=== PATIENT | male | born 1990 | race Caucasian/White ===

== ENCOUNTER 2019-06-30 05:55 | Day surgery (SDC) | payer BC ==
[~2019-06-30] VITALS: Ht 180.3 cm; Wt 86.7 kg
[2019-06-30 06:27] VITALS: BP 135/89
[2019-06-30] MEDS ORDERED: NO HOME MEDS (06:40)
[2019-06-30] MEDS ORDERED: BUPIVACAINE/PF 0.5% ONE ×2 (06:50→09:02)
[2019-06-30] MEDS ORDERED: EPINEPHRINE 1 MG/ML, 1ML ONE (06:50)
[2019-06-30] MEDS ORDERED: LIDOCAINE/PF 1%-EPI 1:200K, 30 ML ONE (06:50)
[2019-06-30] MEDS ORDERED: LACTATED RINGERS 1,000 ML IV SCH (07:04)
[2019-06-30] MEDS ORDERED: FENTANYL PF 250 MCG/5ML ONE (07:54)
[2019-06-30] MEDS ORDERED: MIDAZOLAM 1 MG/ML, 2ML ONE (07:54)
[2019-06-30] MEDS ORDERED: GABAPENTIN 300 MG CAPSULE PO ONE (08:00)
[2019-06-30] MEDS ORDERED: ACETAMINOPHEN 500 MG TABLET PO ONE (08:00)
[2019-06-30] MEDS ORDERED: SUCCINYLCHOLINE 20 MG/ML, 10ML ONE (08:20)
[2019-06-30] MEDS ORDERED: ROCURONIUM 10 MG/ML,10ML ONE (08:20)
[2019-06-30] MEDS ORDERED: hydrALAzine 20 MG/ML, 1ML IV PRN (09:00)
[2019-06-30] MEDS ORDERED: OXYcodone 5 MG/5 ML ORAL.SOL UDC PO PRN (09:00)
[2019-06-30] MEDS ORDERED: MIDAZOLAM 1 MG/ML, 2ML IV PRN (09:00)
[2019-06-30] MEDS ORDERED: FENTANYL PF 100 MCG/2ML IV PRN (09:00)
[2019-06-30] MEDS ORDERED: ALBUTEROL/IPRATROPIUM 2.5MG/0.5MG, 3 ML NPPB PRN (09:00)
[2019-06-30] MEDS ORDERED: MEPERIDINE/PF 25MG/ML,1ML IVPush PRN (09:00)
[2019-06-30] MEDS ORDERED: PROMETHAZINE 25 MG/ML, 1ML IV PRN (09:00)
[2019-06-30] MEDS ORDERED: METOPROLOL 1 MG/ML, 5ML IV PRN (09:00)
[2019-06-30] MEDS ORDERED: DEXAMETHASONE 4 MG/ML, 1ML ONE (09:02)
[2019-06-30] MEDS ORDERED: CEFAZOLIN 1,000 MG ONE (09:02)
[2019-06-30] MEDS ORDERED: LIDOCAINE-MPF 2% ,5ML ONE (09:02)
[2019-06-30] MEDS ORDERED: ONDANSETRON 2MG/ML, 2ML ONE (09:02)
[2019-06-30] MEDS ORDERED: LIDOCAINE GEL 2%, 5ML ONE (09:02)
[2019-06-30] MEDS ORDERED: PROPOFOL 10 MG/ML, 20ML ONE (09:02)
== END 2019-06-30 12:15 | disposition home or self-care (01) ==
LOC: OUT 05:55
PROVIDERS: ATTEND Orthopaedic Surgery
DX: S43.432A Superior glenoid labrum lesion of left shoulder, initial encounter (principal); S42.202A Unspecified fracture of upper end of left humerus, initial encounter for closed fracture; M24.012 Loose body in left shoulder; M65.812 Other synovitis and tenosynovitis, left shoulder; M25.312 Other instability, left shoulder; Z88.5 Allergy status to narcotic agent; Z72.89 Other problems related to lifestyle; X58.XXXA Exposure to other specified factors, initial encounter; Y93.89 Activity, other specified; Y92.89 Other specified places as the place of occurrence of the external cause; Y99.8 Other external cause status
CPT/HCPCS: 29806; 29826; 64415; C1713; J0171; J0330; J0690; J1100; J2250; J2405; J2704; J3010; J3490; J7120

== ENCOUNTER 2020-12-07 07:04 | Outpatient (CLI) | payer BC ==
[~2020-12-07 07:04] MED LIST: NO HOME MEDS
[2020-12-07] MEDS ORDERED: LIDOCAINE 1%, 10ML ONE (07:40)
[2020-12-07] MEDS ORDERED: LIDOCAINE-MPF 1%, 5ML ONE ×2 (07:42→07:48)
[2020-12-07] MEDS ORDERED: ROPivacaine/PF 0.2%, 10 ML ONE (07:48)
[2020-12-07] MEDS ORDERED: GADOTERATE 10 MMOL/20 ML VIAL ONE (08:30)
[2020-12-07] MEDS ORDERED: OMNIPAQUE 300 MG/ML, 10ML VIAL ONE (08:30)
== END 2020-12-07 23:59 | disposition home or self-care (01) ==
LOC: RAD 07:04
PROVIDERS: ATTEND Orthopaedic Surgery
DX: S43.084A Other dislocation of right shoulder joint, initial encounter (principal); S43.431A Superior glenoid labrum lesion of right shoulder, initial encounter; M75.51 Bursitis of right shoulder; X58.XXXA Exposure to other specified factors, initial encounter; Y93.89 Activity, other specified; Y92.89 Other specified places as the place of occurrence of the external cause; Y99.8 Other external cause status
CPT/HCPCS: 23350; 73040; 73222; A9575; J2795; Q9967